=== PATIENT | male | born 1935 | race African-American/Black ===

== ENCOUNTER → 2019-05-02 10:46 | Outpatient (CLI) | payer OTHER ==
[2019-05-02 11:33] LABS: BASOPHILS 0.1 % (0-2); EOSINOPHILS 0.6 % (0-7); HEMATOCRIT 42.4 % (42.0-54.0); HEMOGLOBIN 14.4 g/dL (13.5-17.5); IMMATURE GRANULOCYTES 0.2 % (0-5); LYMPHOCYTES 6.4 % (15-50); MCH 32.7 pg (26.0-34.0); MCV 96.4 fL (80.0-100.0); MEAN PLATELET VOLUME 10.8 fL (7.4-10.4); NEUTROPHILS 84.7 % (40-80); PLATELET COUNT 188 10x3/uL (130-400); RDW 13.5 % (11.5-14.5); WBC 10.5 10x3/uL (4.8-10.8)
[2019-05-02 11:51] LABS: ALBUMIN 3.9 g/dL (3.4-5.0); ANION GAP 14.3 mmol/L (8-16); BILIRUBIN - TOTAL 5.3 mg/dL (0.2-1.3); CALCIUM 9.7 mg/dL (8.5-10.1); CARBON DIOXIDE 27.5 mmol/L (21.0-32.0); CREATININE - SERUM 1.2 mg/dL (0.6-1.3); POTASSIUM - SERUM 3.8 mmol/L (3.5-5.1); PROTEIN - SERUM 8.4 g/dL (6.4-8.2)
== END | disposition home or self-care (01) ==
LOC: D.LAB 10:46 → D.CT 11:30
PROVIDERS: ATTEND Surgery
DX: R17 Unspecified jaundice (principal); R94.5 Abnormal results of liver function studies